=== PATIENT | male | born 1945 | race Caucasian/White ===

== ENCOUNTER 2019-10-26 21:27 | Emergency (ER) | payer MEDICARE, OTHER, SELFPAY ==
[2019-10-26 21:39] VITALS: BP 130/72; PULSE 148; RESP 14; TEMP 35.8; O2SAT 97; BMI 26.6
--- NOTE | 2019-10-26 21:43 | ECG_ITS ---
Measurements Intervals [place] Rate: 153 P: 178 MS: 113 QRS: 12 QRSD: 116 T: -23 QT: 256 QTc: 408 SINUS TACHYCARDIA WITH SHORT MS INTERVAL, POSSIBLE ATRIAL FLUTTER MODERATE INTRAVENTRICULAR CONDUCTION DELAY [110+ ms QRS DURATION] NONSPECIFIC ST & T-WAVE ABNORMALITY ABNORMAL RHYTHM ECG Compared to ECG 03/31/2019 16:14:19 Intraventricular conduction delay now present T-wave abnormality now present Sinus rhythm no longer present Electronically Signed On 10-27-2019 17:03:24 CDT by Héctor Sun M.D. [email or web address]
--- NOTE | 2019-10-26 21:43 | XR_ITS ---
WS: [id number] XR chest 1V portable [id number] REASON FOR EXAM: cp FINDINGS: Chronic obstructive pulmonary disease findings are noted. There is arteriosclerotic changes seen in the arch the aorta. There is mild fibrosis in the lower lung caba. There is no pneumonia pulmonary edema, pleural effusion, no pneumothorax. XR/XR chest 1V portable [id number] IMPRESSION: Chronic obstructive pulmonary disease.
--- NOTE | 2019-10-26 21:46 | W.ED.CHESTPA ---
HPI - Chest Pain General: Chief Complaint: Chest Pain Stated Complaint: irregular heart rate/chest discomfort Time Seen by Provider: 10/26/19 21:42 Source: patient Mode of arrival: ambulatory Limitations: no limitations History of Present Illness: HPI narrative: 74-year-old male with a history of atrial flutter along with SVT. He states he is working out side and started to feel palpitations along with chest pain. He states it feels just like when he gets into A. fib or SVT. He denies any worsening improving factors. He states he can feel his heart rate increased. Onset (ago): hour(s) Timing of current episode: constant Pain location: substernal Pain radiation: none Relieving factors: nothing Exacerbating factors: nothing Associated symptoms: Reports palpitations; Deny abdominal pain, dyspnea, fever(s), nausea or vomiting Review of Systems Const: Denies: fever(s), chills, body aches or change in appetite Eyes: Denies: blurry vision or eye discomfort ENMT: Denies: throat pain or dental pain Card: Reports: palpitations and irregular heart rhythm Resp: Denies: dyspnea GI: Denies: abdominal pain, nausea, vomiting or diarrhea : Denies: dysuria Musc: Denies: neck pain or back pain Skin/Breast: Denies: rash Neuro: Denies: headache(s) Psych: Denies: depression Jaden/Lymph: Denies: easy bruising All/Imm: Denies: urticaria PFSH ED PFSH: Medical History Benign essential HTN BPH (benign prostatic hyperplasia) Chronic prostatitis H/O paroxysmal supraventricular tachycardia Hypercholesterolemia Intermittent atrial fibrillation Pelvis fracture Surgical History H/O ileostomy History of hernia repair S/P tonsillectomy Family History Other Cancer Social History Smoking and tobacco status: never smoked Alcohol intake: never Physical Exam Const: COMMON NORMALS: no acute distress, patient oriented x3 and healthy appearing HENMT: COMMON NORMALS: normocephalic and atraumatic HEAD & SCALP: normocephalic and atraumatic Eye: COMMON NORMALS: Equal, round and reactive pupils present and EOMs intact bilaterally PUPIL: Yes Equal, round and reactive pupils present Neck/C-Spine: COMMON NORMALS: full ROM and supple Chest: COMMONS NORMALS: normal inspection of the chest and normal palpation of entire chest wall Resp: COMMON NORMALS: normal respiratory effort, No retractions, No use of accessory muscles and clear to auscultation bilaterally AUSCULTATION: clear to auscultation bilaterally Cardio: COMMON NORMALS: regular rhythm and No murmurs present (Cardio) RATE: tachycardic RHYTHM: regular rhythm GI: COMMON NORMALS: Normal to inspection, nondistended, normoactive bowel sounds present, Soft to palpation, non-tender and no masses PALPATION: Yes Soft to palpation Extremity: COMMON NORMALS: normal to inspection and full ROM Neuro: COMMON NORMALS: patient oriented x3, moves all extremities and no focal motor deficits Psych: COMMON NORMALS: mental status grossly normal, Normal thought process present and cooperative THOUGHT PROCESS: Normal thought process present Skin: COMMON NORMALS: no rashes or lesions noted and no wounds GENERAL SKIN EXAM: no rashes or lesions noted Course Vital Signs: Vital signs: Vital Signs Temperature 96.4 F L 10/26/19 21:39 Pulse Rate 93 10/26/19 22:04 Respiratory Rate 18 10/26/19 22:04 Blood Pressure 97/70 10/26/19 22:04 Pulse Oximetry 98 10/26/19 22:04 MDM - Chest Pain MDM Narrative: Medical decision making narrative: Patient was seen here with atrial flutter and fib. Patient converted after Cardizem. He is asymptomatic and has no pain. Patient is requesting discharge. I feel patient is stable for discharge at this time. Patient is well-appearing here. Lab Data: Labs: Lab Results 10/26/19 10/26/19 10/26/19 Range/Units 21:51 21:51 21:51 WBC 8.7 (4.0-10.0) 10^3/ uL RBC 5.10 (4.1-5.3) 10^6/u L Hgb 16.2 (11.7-16.6) g/dL Hct 48.7 (42.0-52.0) % MCV 95.5 H (80-94) fL MCH 31.8 (28.0-34.0) pg MCHC 33.3 (30.0-36.0) g/dL RDW 13.2 (12.1-15.1) % Plt Count 246 (130-400) 10^3/c mm MPV 9.0 (7.4-10.4) fL Neut % (Auto) 58.6 % Lymph % (Auto) 29.1 % [place] % (Auto) 9.9 % Eos % (Auto) 1.6 % Baso % (Auto) 0.5 % Neut # (Auto) 5.1 (1.8-7.7) 10^3/u L Lymph # (Auto) 2.5 (0.8-4.8) 10^3/u L [place] # (Auto) 0.9 (0.2-0.9) 10^3/u L Eos # (Auto) 0.1 (0.0-0.8) 10^3/u L Baso # (Auto) 0.0 (0.0-0.1) 10^3/u L Nucleated RBC % (a uto) 0 % Nucleated RBCs # 0.0 /100WBC Sodium 140 (136-145) mmol/L Potassium 3.8 (3.5-5.1) mmol/L Chloride 108 H (98-107) mmol/L Carbon Dioxide 21 L (22-29) mmol/L Anion Gap 14.8 (5-19) BUN 17 (8-23) mg/dL Creatinine 1.2 (0.7-1.2) mg/dL Glucose 141 H (65-115) mg/dL Calculated Osmolal ity 289 (285-295) mOsm/k g Calcium 9.2 (8.5-10.5) mg/dL Total Bilirubin 0.2 (0.15-1.2) mg/dL AST 24 (0-40) U/L ALT 22 (0-41) U/L Alkaline Phosphata se 52 (40-130) IU/L Troponin T Baselin e 13 (0-15) ng/mL Total Protein 6.5 L (6.6-8.7) g/dL Albumin 4.1 (3.5-5.2) g/dL Globulin 2.4 (1.3-4.6) g/dL EKG Data^: EKG 1: Attestation: I personally reviewed and interpreted this EKG as follows: EKG interpretation date: 10/26/19 EKG interpretation time: 21:36 Interpretation: atrial flutter hr [address] or t wave abnormalities qrs 116 qtc 342 EKG 2: Attestation: I personally reviewed and interpreted this EKG as follows: EKG interpretation date: 10/26/19 EKG interpretation time: 22:31 Interpretation: nsr hr [address] or t wave abnormalities qrs 102 qtc 405 Discharge Plan Discharge Patient Disposition: Home, Self-Care Clinical Impression: Intermittent atrial fibrillation Condition: Stable Prescriptions: No Action metoprolol tartrate 25 mg tablet 12.5 mg PO BID RF: 0 Eliquis 5 mg tablet 5 mg PO BID RF: 0 psyllium Packet 1 packet PO DAILY RF: 0 flecainide 150 mg tablet 150 mg PO Q12H RF: 0 fluticasone propionate 50 mcg/actuation spray,suspension 1 spray INTRANASAL BID PRNRF: 0 fexofenadine [Allergy Relief (fexofenadine)] 180 mg tablet 180 mg PO DAILY RF: 0 amlodipine 2.5 mg tablet 2.5 mg PO DAILY 30 Days Qty: 30 RF: 5 dutasteride-tamsulosin [Floresita] 0.5-0.4 mg capsule, ER multiphase 24 hr 1 cap PO DAILY Qty: 90 RF: 3 Discharge Orders: Discharge Order (Routine); Ordered 10/26/19 Ordered By: Casimiro Espinosa Referrals: Gilbert Posada DO [Primary Care Provider] - 1-3 days Discharge Diet: Advance as tolerated Discharge Activity: Resume usual activity Patient Instructions: Atrial Flutter (ED) Coding Level of Care Code ED Tooling Specialist for Chg Fwd Exam Comprehensive
[2019-10-26 21:58] LABS: Basophils % 0.5 %; Eosinophils # 0.1 10^3/uL (0.0-0.8); Eosinophils % 1.6 %; Hematocrit 48.7 % (42.0-52.0); Hemoglobin 16.2 g/dL (11.7-16.6); Lymphocytes # 2.5 10^3/uL (0.8-4.8); Lymphocytes % 29.1 %; Mean Corpuscular HGB Conc 33.3 g/dL (30.0-36.0); Mean Corpuscular Hemoglobin 31.8 pg (28.0-34.0); Mean Corpuscular Volume 95.5 fL (80-94); Monocytes # 0.9 10^3/uL (0.2-0.9); Monocytes % 9.9 %; Neutrophils # 5.1 10^3/uL (1.8-7.7); Neutrophils % 58.6 %; Nucleated Red Blood Cells % 0 %; Platelet Count 246 10^3/cmm (130-400); Red Cell Distribution Width 13.2 % (12.1-15.1); White Blood Count 8.7 10^3/uL (4.0-10.0)
[2019-10-26] MEDS: sodium chloride 0.9% 1,000 ML 999 ML IV (21:58)
[2019-10-26 22:04] VITALS: BP 97/70; PULSE 93; RESP 18; O2SAT 98
[2019-10-26 22:16] LABS: Alanine Aminotransferase 22 U/L (0-41); Albumin Level 4.1 g/dL (3.5-5.2); Alkaline Phosphatase 52 IU/L (40-130); Anion Gap 14.8 (5-19); Aspartate Amino Transferase 24 U/L (0-40); Blood Urea Nitrogen 17 mg/dL (8-23); Calcium 9.2 mg/dL (8.5-10.5); Carbon Dioxide 21 mmol/L (22-29); Chloride 108 mmol/L (98-107); Globulin 2.4 g/dL (1.3-4.6); Glucose 141 mg/dL (65-115); Osmolality Calculated 289 mOsm/kg (285-295); Potassium 3.8 mmol/L (3.5-5.1); Sodium 140 mmol/L (136-145); Total Bilirubin 0.2 mg/dL (0.15-1.2); Total Protein 6.5 g/dL (6.6-8.7)
[2019-10-26 22:19] LABS: Troponin(5th) Baseline 13 ng/mL (0-15)
[2019-10-26 23:05] VITALS: BP 109/77; PULSE 75; RESP 16; O2SAT 96
--- NOTE | 2019-10-26 23:43 | ECG_ITS ---
Measurements Intervals [place] Rate: 75 P: 55 WA: 184 QRS: -10 QRSD: 102 T: -13 QT: 376 QTc: 422 SINUS RHYTHM POSSIBLE LEFT ATRIAL ENLARGEMENT [-0.1mV P WAVE IN V1/V2] MODERATE ST DEPRESSION [0.05+ mV ST DEPRESSION] Compared to ECG 03/31/2019 16:14:19 ST (T wave) deviation now present Electronically Signed On 10-27-2019 17:07:16 CDT by Héctor Sun M.D. [id number]
== END 2019-10-26 23:06 | disposition home or self-care (01) ==
PROVIDERS: Emergency Provider Emergency Medicine; PCP Internal Medicine
DX: I48.91 Unspecified atrial fibrillation (principal); Z79.01 Long term (current) use of anticoagulants; I10 Essential (primary) hypertension
CPT/HCPCS: 12345; 36415; 71045; 80053; 84484; 85025; 93005; 96360; 96361; 96374; 96375; 99283; 99284; J3490; J7030

== ENCOUNTER → 2020-11-22 09:55 | Outpatient (BNVA) | payer MEDICARE, OTHER, SELFPAY | PROVIDERS: PCP Internal Medicine; Visit Provider Urology | DX: N40.1 Benign prostatic hyperplasia with lower urinary tract symptoms (principal); R97.20 Elevated prostate specific antigen [PSA]; N13.8 Other obstructive and reflux uropathy | CPT/HCPCS: 81003; 84153 ==

== ENCOUNTER 2021-01-26 20:20 | Emergency (ER) | payer MEDICARE, OTHER, SELFPAY ==
--- NOTE | 2021-01-26 20:30 | XRR_ITS ---
PROCEDURE INFORMATION: Exam: XR Chest Exam date and time: 01/26/2021 8:30 PM Age: 75 years old Clinical indication: Pain; Left-sided; Additional info: Cp TECHNIQUE: Imaging protocol: XR of the chest. Views: 1 view. Total images: 1 COMPARISON: CR XR chest 1V portable [id number] 10/26/2019 10:04 PM FINDINGS: Lungs: No visible active interstitial or alveolar airspace disease. Chronic minimal bibasilar discoid atelectasis. COPD/chronic bronchitis. Mild senile fibrosis. Pleural spaces: Unremarkable. No pleural effusion. No pneumothorax. Heart/Mediastinum: Cardiac structures and configuration with arteriosclerosis and mild cardiomegaly. Bones/joints: Scoliosis of the spine. XR/XR chest 1V portable [id number] IMPRESSION: Nonacute.
[2021-01-26 20:38] VITALS: BP 118/75; PULSE 160; RESP 20; TEMP 36.8; O2SAT 93; BMI 25.8
--- NOTE | 2021-01-26 20:51 | ED_ITS ---
HPI - Chest Pain General: Chief Complaint: Chest Pain Stated Complaint: chest pressure Time Seen by Provider: 01/26/21 20:44 Source: patient Mode of arrival: ambulatory Limitations: no limitations History of Present Illness: HPI narrative: 75-year-old male states he had a sudden onset of palpitations at 715 this evening. He states he has a history of proximal A. fib and SVT states this feels more like SVT. He states that he feels like his heart is racing. He denies any vomiting or diarrhea. He denies any chest pain states he just has an irregular feeling in his chest from the palpitations. Denies any worsening improving factors. Associated symptoms: Reports palpitations; Deny abdominal pain, dyspnea, fever(s), nausea or vomiting Review of Systems Const: Denies: fever(s), chills, body aches or change in appetite Eyes: Denies: blurry vision or eye discomfort ENMT: Denies: throat pain or dental pain Card: Reports: palpitations Resp: Denies: dyspnea GI: Denies: abdominal pain, nausea, vomiting or diarrhea : Denies: dysuria Musc: Denies: neck pain or back pain Skin/Breast: Denies: rash Neuro: Denies: headache(s) Psych: Denies: depression Jaden/Lymph: Denies: easy bruising All/Imm: Denies: urticaria PFSH ED PFSH: Medical History Benign essential HTN BPH (benign prostatic hyperplasia) BPH with urinary obstruction Long-term benefit of dutasteride. Chronic prostatitis H/O paroxysmal supraventricular tachycardia Hypercholesterolemia Intermittent atrial fibrillation Pelvis fracture Surgical History H/O ileostomy History of hernia repair S/P tonsillectomy Family History Mother Cancer Father Cancer Denies family history of Diabetes CAD (coronary artery disease) Clotting disorder Dementia Chronic kidney disease (CKD) Suicide Anesthesia complication Bleeding disorder Lung disease Stroke Social History Smoking and tobacco status: never smoked Alcohol intake: never Marital status: Current occupational status: retired Physical Exam Const: COMMON NORMALS: no acute distress, patient oriented x3 and healthy appearing HENMT: COMMON NORMALS: normocephalic and atraumatic HEAD & SCALP: normocephalic and atraumatic Eye: COMMON NORMALS: Equal, round and reactive pupils present and EOMs intact bilaterally PUPIL: Yes Equal, round and reactive pupils present Neck/C-Spine: COMMON NORMALS: full ROM and supple Chest: COMMONS NORMALS: normal inspection of the chest and normal palpation of entire chest wall Resp: COMMON NORMALS: normal respiratory effort, No retractions, No use of accessory muscles and clear to auscultation bilaterally AUSCULTATION: clear to auscultation bilaterally Cardio: COMMON NORMALS: regular rate, regular rhythm and No murmurs present (Cardio) RATE: regular rate RHYTHM: regular rhythm GI: COMMON NORMALS: Normal to inspection, nondistended, normoactive bowel sounds present, Soft to palpation, non-tender and no masses PALPATION: Yes Soft to palpation Extremity: COMMON NORMALS: normal to inspection and full ROM Neuro: COMMON NORMALS: patient oriented x3, moves all extremities and no focal motor deficits Psych: COMMON NORMALS: mental status grossly normal, Normal thought process present and cooperative THOUGHT PROCESS: Normal thought process present Skin: COMMON NORMALS: no rashes or lesions noted and no wounds GENERAL SKIN EXAM: no rashes or lesions noted Course Vital Signs: Vital signs: Vital Signs Temperature 98.3 F 01/26/21 20:38 Pulse Rate 99 01/26/21 21:22 Respiratory Rate 20 H 01/26/21 21:22 Blood Pressure 127/91 01/26/21 21:22 Pulse Oximetry 94 01/26/21 21:22 MDM - Chest Pain MDM Narrative: Medical decision making narrative: Patient presents with SVT. Was converted here with adenosine. His symptoms have since resolved and his heart rate has been in the 90s. Feel patient is stable for discharge is to follow-up with PCP and return if worsening. He understands agrees to plan. Lab Data: Labs: Lab Results 01/26/21 01/26/21 01/26/21 Range/Units 20:50 20:50 20:50 WBC Cancelled Corrected WBC Cancelled RBC Cancelled Hgb Cancelled Hct Cancelled MCV Cancelled MCH Cancelled MCHC Cancelled RDW Cancelled Plt Count Cancelled MPV Cancelled Gran % Cancelled Neut % (Auto) Cancelled Lymph % (Auto) Cancelled Robertson % (Auto) Cancelled Eos % (Auto) Cancelled Baso % (Auto) Cancelled Neut # (Auto) Cancelled Lymph # (Auto) Cancelled Robertson # (Auto) Cancelled Eos # (Auto) Cancelled Baso # (Auto) Cancelled Absolute Gran (aut o) Cancelled Nucleated RBC % (a uto) Cancelled Nucleated RBCs # Cancelled PT Cancelled INR Cancelled Sodium Cancelled Potassium Cancelled Chloride Cancelled Carbon Dioxide Cancelled Anion Gap Cancelled BUN Cancelled Creatinine Cancelled GFR Calculation Cancelled Glucose Cancelled Calculated Osmolal ity Cancelled Calcium Cancelled Total Bilirubin Cancelled AST Cancelled ALT Cancelled Alkaline Phosphata se Cancelled Troponin T Baselin e Total Protein Cancelled Albumin Cancelled Globulin Cancelled 01/26/21 Range/Units 20:50 WBC Corrected WBC RBC Hgb Hct MCV MCH MCHC RDW Plt Count MPV Gran % Neut % (Auto) Lymph % (Auto) Robertson % (Auto) Eos % (Auto) Baso % (Auto) Neut # (Auto) Lymph # (Auto) Robertson # (Auto) Eos # (Auto) Baso # (Auto) Absolute Gran (aut o) Nucleated RBC % (a uto) Nucleated RBCs # PT INR Sodium Potassium Chloride Carbon Dioxide Anion Gap BUN Creatinine GFR Calculation Glucose Calculated Osmolal ity Calcium Total Bilirubin AST ALT Alkaline Phosphata se Troponin T Baselin e Cancelled Total Protein Albumin Globulin Imaging Data^: CXR: Attestation: I personally reviewed and interpreted this imaging study as follows: My impression: no acute abnormality EKG Data^: EKG 1: Attestation: I personally reviewed and interpreted this EKG as follows: EKG interpretation date: 01/26/21 EKG interpretation time: 20:34 Interpretation: svt hr [address] or t wave abnormalities qrs 123 qtc 326 EKG 2: Attestation: I personally reviewed and interpreted this EKG as follows: EKG interpretation date: 01/26/21 EKG interpretation time: 21:23 Interpretation: nsr hr [address] or twave abnormalities qrs 106 qtc 398 Discharge Plan Discharge Patient Disposition: Home Clinical Impression: SVT (supraventricular tachycardia) Condition: Stable Prescriptions: No Action Ocuvite Adult 50 Plus 250-5-1 mg capsule 1 cap PO DAILY RF: 0 Eliquis 5 mg tablet 5 mg PO BID RF: 0 psyllium Packet 1 packet PO DAILY RF: 0 flecainide 150 mg tablet 150 mg PO Q12H RF: 0 fluticasone propionate 50 mcg/actuation spray,suspension 1 spray INTRANASAL BID PRN (Reason: Allergy Symptoms) RF: 0 fexofenadine [Allergy Relief (fexofenadine)] 180 mg tablet 180 mg PO DAILY RF: 0 diltiazem HCl 120 mg capsule,extended release 24hr 120 mg PO DAILY Qty: 90 RF: 3 acetaminophen 325 mg Tablet 325 - 650 mg PO DAILY PRN (Reason: Pain) RF: 0 dutasteride-tamsulosin 0.5-0.4 mg capsule, ER multiphase 24 hr 1 cap PO DAILY RF: 0 Discharge Orders: Discharge ED (Routine); Ordered 01/26/21 Ordered By: Casimiro Espinosa Referrals: Gilbert Posada DO [Primary Care Provider] - Discharge Diet: Advance as tolerated Discharge Activity: Resume usual activity Patient Instructions: Supraventricular Tachycardia (ED) Coding Level of Care Code ED Paper Tester for Chg Fwd Exam Comprehensive
[2021-01-26 20:54] VITALS: BP 120/85; PULSE 155; RESP 29; O2SAT 95
[2021-01-26] MEDS: adenosine 3 mg/mL SDV 2mL 6 MG IVP (20:55)
[2021-01-26 21:22] VITALS: BP 127/91; PULSE 99; RESP 20; O2SAT 94
[2021-01-26 21:28] VITALS: BP 110/80; PULSE 98; RESP 21; O2SAT 95
--- NOTE | 2021-01-27 07:16 | ECG_ITS ---
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 Measurements Intervals [place] Rate: 163 P: MA: QRS: 24 QRSD: 123 T: 17 QT: 236 QTc: 389 Interpretive Statements Possible atrial flutter with rapid response POSSIBLE RIGHT VENTRICULAR CONDUCTION DELAY [RSR (QR) IN V1/V2] NONSPECIFIC ST & T-WAVE ABNORMALITY Compared to ECG 10/26/2019 22:31:34 T-wave abnormality now present Sinus rhythm no longer present ST (T wave) deviation no longer present Electronically Signed On 01-28-2021 9:11:20 CDT by Sylvie Daniel M.D. [id number]
== END 2021-01-26 21:36 | disposition home or self-care (01) ==
PROVIDERS: Emergency Provider Emergency Medicine; PCP Internal Medicine
DX: I47.1 Supraventricular tachycardia (principal); Z79.01 Long term (current) use of anticoagulants; I10 Essential (primary) hypertension
CPT/HCPCS: 71045; 85025; 93005; 96374; 99284; J0153

== ENCOUNTER → 2021-08-09 14:06 | Outpatient (BNVA) | payer MEDICARE, OTHER, SELFPAY | PROVIDERS: PCP Internal Medicine; Visit Provider Internal Medicine Cardiovascular Disease | DX: I48.0 Paroxysmal atrial fibrillation (principal); E78.00 Pure hypercholesterolemia, unspecified; I10 Essential (primary) hypertension; Z86.79 Personal history of other diseases of the circulatory system | CPT/HCPCS: 99214 ==

== ENCOUNTER → 2022-02-14 13:49 | Outpatient (BNVA) | payer MEDICARE, OTHER, SELFPAY | PROVIDERS: PCP Internal Medicine; Visit Provider Internal Medicine Cardiovascular Disease | DX: I48.91 Unspecified atrial fibrillation (principal); Z79.01 Long term (current) use of anticoagulants; I10 Essential (primary) hypertension; Z86.79 Personal history of other diseases of the circulatory system; E78.00 Pure hypercholesterolemia, unspecified | CPT/HCPCS: 99214 ==

== ENCOUNTER → 2022-08-16 14:05 | Outpatient (BNVA) | payer MEDICARE, OTHER, SELFPAY | PROVIDERS: PCP Internal Medicine; Visit Provider Internal Medicine Cardiovascular Disease | DX: I48.91 Unspecified atrial fibrillation (principal); I10 Essential (primary) hypertension; E78.00 Pure hypercholesterolemia, unspecified; Z86.79 Personal history of other diseases of the circulatory system; Z79.01 Long term (current) use of anticoagulants | CPT/HCPCS: 99214 ==

== ENCOUNTER → 2023-02-28 14:35 | Outpatient (BNVA) | payer MEDICARE, OTHER, SELFPAY | PROVIDERS: PCP Internal Medicine; Visit Provider Internal Medicine Cardiovascular Disease | DX: R07.9 Chest pain, unspecified (principal); I48.0 Paroxysmal atrial fibrillation; E78.00 Pure hypercholesterolemia, unspecified; I10 Essential (primary) hypertension; Z86.79 Personal history of other diseases of the circulatory system; Z79.899 Other long term (current) drug therapy; I45.9 Conduction disorder, unspecified | CPT/HCPCS: 93005; 99214 ==

== ENCOUNTER → 2023-03-08 14:21 | Outpatient (BNVA) | payer MEDICARE, OTHER, SELFPAY | PROVIDERS: PCP Internal Medicine; Visit Provider Nurse Practitioner Family | DX: I87.2 Venous insufficiency (chronic) (peripheral) (principal); D22.5 Melanocytic nevi of trunk; L57.8 Other skin changes due to chronic exposure to nonionizing radiation; L81.4 Other melanin hyperpigmentation; Z08 Encounter for follow-up examination after completed treatment for malignant neoplasm; Z85.828 Personal history of other malignant neoplasm of skin; D48.5 Neoplasm of uncertain behavior of skin; L57.0 Actinic keratosis | CPT/HCPCS: 11102; 17000; 99213 ==

== ENCOUNTER → 2023-03-21 10:22 | Outpatient (BNVA) | payer MEDICARE, OTHER, SELFPAY | PROVIDERS: PCP Internal Medicine; Visit Provider Dermatology | DX: D03.4 Melanoma in situ of scalp and neck (principal) | CPT/HCPCS: 11623; 12032 ==

== ENCOUNTER → 2023-04-04 11:39 | Outpatient (BNVA) | payer MEDICARE, OTHER, SELFPAY | PROVIDERS: PCP Internal Medicine; Visit Provider Dermatology | DX: Z48.02 Encounter for removal of sutures (principal) | CPT/HCPCS: 99024 ==

== ENCOUNTER → 2023-08-06 13:37 | Outpatient (BNVA) | payer MEDICARE, OTHER, SELFPAY | PROVIDERS: PCP Internal Medicine; Visit Provider Nurse Practitioner Family | DX: L57.0 Actinic keratosis (principal); L91.8 Other hypertrophic disorders of the skin; L57.8 Other skin changes due to chronic exposure to nonionizing radiation; L81.4 Other melanin hyperpigmentation; D22.39 Melanocytic nevi of other parts of face; D22.5 Melanocytic nevi of trunk; L82.1 Other seborrheic keratosis | CPT/HCPCS: 11200; 17000; 99213 ==

== ENCOUNTER → 2023-09-19 10:03 | Outpatient (BNVA) | payer MEDICARE, OTHER, SELFPAY | PROVIDERS: PCP Internal Medicine; Visit Provider Internal Medicine Cardiovascular Disease | DX: I48.0 Paroxysmal atrial fibrillation (principal); Z79.899 Other long term (current) drug therapy; E78.00 Pure hypercholesterolemia, unspecified; I10 Essential (primary) hypertension; I47.10 Supraventricular tachycardia, unspecified; Z79.01 Long term (current) use of anticoagulants | CPT/HCPCS: 99214 ==

== ENCOUNTER → 2023-09-27 14:30 | Outpatient (BNVA) | payer MEDICARE, OTHER, SELFPAY | PROVIDERS: PCP Internal Medicine; Visit Provider Nurse Practitioner Family | DX: D48.5 Neoplasm of uncertain behavior of skin (principal); L23.9 Allergic contact dermatitis, unspecified cause; L57.8 Other skin changes due to chronic exposure to nonionizing radiation; L81.4 Other melanin hyperpigmentation; D22.39 Melanocytic nevi of other parts of face; L82.1 Other seborrheic keratosis; I87.2 Venous insufficiency (chronic) (peripheral); Z86.006 Personal history of melanoma in-situ; Z85.828 Personal history of other malignant neoplasm of skin | CPT/HCPCS: 11102; 99214 ==

== ENCOUNTER → 2024-02-06 14:35 | Outpatient (BNVA) | payer MEDICARE, OTHER, SELFPAY | PROVIDERS: PCP Internal Medicine; Visit Provider Nurse Practitioner Family | DX: Z86.006 Personal history of melanoma in-situ (principal); Z85.828 Personal history of other malignant neoplasm of skin; D48.5 Neoplasm of uncertain behavior of skin | CPT/HCPCS: 11102; 99213 ==

== ENCOUNTER → 2024-03-05 14:48 | Outpatient (BNVA) | payer MEDICARE, OTHER, SELFPAY | PROVIDERS: PCP Internal Medicine; Visit Provider Dermatology | DX: C44.629 Squamous cell carcinoma of skin of left upper limb, including shoulder (principal) | CPT/HCPCS: 11602; 13121 ==

== ENCOUNTER → 2024-03-20 15:08 | Outpatient (BNVA) | payer MEDICARE, OTHER, SELFPAY | PROVIDERS: PCP Internal Medicine; Visit Provider Dermatology | DX: I78.8 Other diseases of capillaries (principal); L82.1 Other seborrheic keratosis; L57.8 Other skin changes due to chronic exposure to nonionizing radiation | CPT/HCPCS: 99213 ==

== ENCOUNTER → 2024-03-28 10:00 | Outpatient (BNVA) | payer MEDICARE, OTHER, SELFPAY | PROVIDERS: PCP Internal Medicine; Visit Provider Nurse Practitioner Family | DX: I21.9 Acute myocardial infarction, unspecified (principal); I49.8 Other specified cardiac arrhythmias; R07.9 Chest pain, unspecified; R94.31 Abnormal electrocardiogram [ECG] [EKG]; I47.10 Supraventricular tachycardia, unspecified; I48.0 Paroxysmal atrial fibrillation; R53.83 Other fatigue | CPT/HCPCS: 93005; 99214 ==

== ENCOUNTER → 2024-07-02 15:00 | Outpatient (BNVA) | payer MEDICARE, OTHER, SELFPAY | PROVIDERS: PCP Internal Medicine; Visit Provider Nurse Practitioner Family | DX: L82.1 Other seborrheic keratosis (principal); D22.39 Melanocytic nevi of other parts of face; I78.8 Other diseases of capillaries; L57.8 Other skin changes due to chronic exposure to nonionizing radiation; L81.4 Other melanin hyperpigmentation; L30.0 Nummular dermatitis; Z86.006 Personal history of melanoma in-situ; Z08 Encounter for follow-up examination after completed treatment for malignant neoplasm; Z85.828 Personal history of other malignant neoplasm of skin; L57.0 Actinic keratosis | CPT/HCPCS: 17000; 99214 ==

== ENCOUNTER → 2024-09-02 15:33 | Outpatient (BNVA) | payer MEDICARE, OTHER, SELFPAY | PROVIDERS: PCP Internal Medicine; Visit Provider Internal Medicine Cardiovascular Disease | DX: I48.0 Paroxysmal atrial fibrillation (principal); Z79.01 Long term (current) use of anticoagulants; I10 Essential (primary) hypertension; E78.00 Pure hypercholesterolemia, unspecified; I47.10 Supraventricular tachycardia, unspecified; R53.83 Other fatigue; Z98.61 Coronary angioplasty status; Z79.899 Other long term (current) drug therapy | CPT/HCPCS: 99214 ==

== ENCOUNTER 2024-09-08 07:23 | Outpatient (CLI) | payer MEDICARE, OTHER, SELFPAY ==
--- NOTE | 2024-09-08 | ECG_ITS ---
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 The perfusion scan will be documented separately. DATA: Baseline heart rate was 69 beats per minute. Baseline blood pressure was 159/76 millimeters of mercury. Target heart rate was 142. Maximum heart rate achieved was 88. which was 61 % of the predicted target heart rate. Maximum blood pressure was 159/85 millimeters of mercury. The reason for ending the test was end of protocol the patient did not experience any symptoms. ELECTROCARDIOGRAM: BASELINE: Sinus rhythm. Normal axis. Inferolateral ST depression with interventricular conduction delay could be nonspecific EXERCISE: After Lexiscan injection, no ST-T changes suggestive of ischemic noted. No arrhythmia noted. CONCLUSION: Please note due to baseline abnormality of the EKG specificity and sensitivity of the EKG portion of LexiScan MIBI stress test will be low 1. EKG not suggestive of ischemia 2. Lexiscan injection unremarkable. 3. Perfusion scan will be documented separately. Electronically Signed On 09-08-2024 19:29:49 CDT by KATERINE RICHARDS [id number] [id number]
[2024-09-08 07:51] VITALS: BMI 27.0
--- NOTE | 2024-09-08 07:51 | NMCV_ITS ---
NM odette perf SPECT r/s* [id number] Fadi Jordan Age: 79 Gender: M : 1945 Exam Date: 09/08/2024 08:38 Ordering Phys: Bar De La Cruz MD ([email or web address]) Technologist: GERALDO Carreno Exam Location: [facility] Indications: cp STRESS TEST Please see separate stress test report in [facility] for full findings IMAGE PROTOCOL Rest/Stress 1 Lexiscan Day Radiopharmaceutical Dose (mCi) Administration Site Administered by Rest: Tc-99m 10.9 IV GERALDO Carreno Sestamibi Stress:Tc-99m 328 IV GERALDO Peace Sestamibi Rest: 08-Sep-2024 60 Discovery 630 Stress: 08-Sep-2024 30 Discovery 630 0.4mg Lexiscan. Images obtained in supine and prone position. SPECT RESULTS Technical Quality: Good Raw Data Analysis: Normal Image Corrections: No attenuation or motion correction applied Summed Stress Score: 3 Summed Rest Score: 0 Summed Difference Score: 3 PERFUSION FINDINGS There is a small area of partially reversible perfusion defect in the inferior wall. 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 FUNCTIONAL RESULTS (calculated via Gated SPECT) Stress Image LV EF (%): 77 Stress EDV (mL):87 TID: 0.95 Stress ESV (mL):20 FUNCTIONAL FINDINGS: There is normal left ventricular systolic function. IMPRESSIONS 1. 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 2. LV systolic function is normal. Qamar Vivas MD (Electronically Signed) Final Date: 08 September 2024 17:11 S
[2024-09-08] MEDS: regadenoson 0.4 Mg/5 ml Syringe IVP (09:05)
[2024-09-08 09:11] VITALS: BP 139/81; PULSE 75
== END 2024-09-08 07:24 | disposition home or self-care (01) ==
PROVIDERS: PCP Family Medicine; Visit Provider Internal Medicine Cardiovascular Disease
DX: I48.91 Unspecified atrial fibrillation (principal); R93.1 Abnormal findings on diagnostic imaging of heart and coronary circulation
CPT/HCPCS: 36415; 78452; 93017; 96374; A9500; J2785

== ENCOUNTER 2024-09-18 20:56 | Emergency (ER) | payer MEDICARE, OTHER, SELFPAY ==
[2024-09-18 21:03] VITALS: BP 154/94; PULSE 142; RESP 18; TEMP 37.1; O2SAT 94; BMI 26.9
--- NOTE | 2024-09-18 21:04 | XRR_ITS ---
PROCEDURE INFORMATION: Exam: XR Chest Exam date and time: 09/18/2024 9:15 PM Age: 79 years old Clinical indication: Chest pressure and chest wall pain; Additional info: Palpitations TECHNIQUE: Imaging protocol: Radiologic exam of the chest. Views: 1 view. COMPARISON: CR XR chest 2V* [id number] 11/21/2021 11:06 AM FINDINGS: Lungs: Unremarkable. No consolidation. Pleural spaces: Unremarkable. No pleural effusion. No pneumothorax. Heart/Mediastinum: Unremarkable. No cardiomegaly. Bones/joints: Unremarkable. XR/XR chest 1V portable [id number] IMPRESSION: No acute findings.
--- NOTE | 2024-09-18 21:08 | ECG_ITS ---
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 Measurements Intervals [place] Rate: 142 P: 171 CO: 141 QRS: 34 QRSD: 122 T: -31 QT: 266 QTc: 409 Interpretive Statements POSSIBLE ATRIAL FLUTTER MODERATE INTRAVENTRICULAR CONDUCTION DELAY [110+ ms QRS DURATION] NONSPECIFIC ST & T-WAVE ABNORMALITY Compared to ECG 03/28/2024 10:07:19 Intraventricular conduction delay now present T-wave abnormality now present Sinus rhythm no longer present Myocardial infarct finding no longer present Electronically Signed On 09-19-2024 10:35:24 CDT by Bar De La Cruz M.D. [email or web address] [id number]
--- NOTE | 2024-09-18 21:09 | W.ED.ARRPALP ---
Documented by User: Pat Null MD 09/18/24 21:10 HPI - Arrhythmia/Palpitations General: Chief Complaint: Arrhythmia/Palpitations Stated Complaint: Has Svt,A fib can't get his heart rate down Time Seen by Provider: 09/18/24 21:09 History of Present Illness: 79-year-old male with a history of hypertension, atrial fibrillation, SVT and chronic anticoagulation on Eliquis who presents emergency room with tachycardia. He says usually when he has SVT he can lay on his back and get it to convert. He said when that did not work he figured it was A-fib. When he arrives here he appears to be in atrial fibrillation. Rate in the 140s. No chest pain. No shortness of breath. No altered mental status. No lower extremity swelling. No fevers. No cough. Related Data Home Medications ?Medication ?Instructions ?Recorded ?Confirmed apixaban 5 mg tablet (Eliquis) 5 mg PO BID 07/07/19 03/28/24 flecainide 150 mg tablet 150 mg PO Q12H 07/07/19 03/28/24 fluticasone propionate 50 1 spray intranasal BID PRN Allergy 07/07/19 03/28/24 mcg/actuation nasal Symptoms spray,suspension psyllium 1 packet PO DAILY 07/07/19 03/28/24 vit C,E,zinc,copper-[id number] 250 1 cap PO DAILY 11/22/20 03/28/24 mg-lutein 5 mg-zeaxanthin 1 mg capsule (Ocuvite Adult 50 Plus) dutasteride 0.5 mg-tamsulosin ER 1 cap PO DAILY 01/26/21 03/28/24 0.4 mg capsule ext.release 24hr mphas fluocinonide 0.05 % topical 1 applic topical BID 06/22/21 03/28/24 ointment fexofenadine 180 mg tablet 180 mg PO .PRN 08/09/21 03/28/24 (Allergy Relief (fexofenadine)) acetaminophen 325 mg tablet 325 - 650 mg PO DAILY PRN Pain 08/16/22 03/28/24 atorvastatin 20 mg tablet mg PO 09/02/24 Previous Rx's ?Medication ?Instructions ?Recorded diltiazem HCl 180 mg See Rx Instructions .Route 08/15/24 capsule,extended release 24 hr .COMPLEX #90 caps Allergies Allergy/AdvReac Type Severity Reaction Status Date / Time No Known Allergies Allergy Verified 09/02/24 08:13 Review of Systems Narrative: Constitutional symptoms: Negative except as documented in HPI. Skin symptoms: Negative except as documented in HPI. Eye symptoms: Negative except as documented in HPI. ENMT symptoms: Negative except as documented in HPI. Respiratory symptoms: Negative except as documented in HPI. Cardiovascular symptoms: Negative except as documented in HPI. Gastrointestinal symptoms: Negative except as documented in HPI. Genitourinary symptoms: Negative except as documented in HPI. Musculoskeletal symptoms: Negative except as documented in HPI. Neurologic symptoms: Negative except as documented in HPI. Psychiatric symptoms: Negative except as documented in HPI. Endocrine symptoms: Negative except as documented in HPI. PFSH ED PFSH: Medical History BPH with urinary obstruction Long-term benefit of dutasteride. Hypercholesterolemia Benign essential HTN Intermittent atrial fibrillation Pelvis fracture H/O paroxysmal supraventricular tachycardia BPH (benign prostatic hyperplasia) Chronic prostatitis Surgical History History of colon resection Hx of pelvic surgery History of hernia repair S/P tonsillectomy H/O ileostomy Family History Mother Cancer Father Cancer Denies family history of Diabetes CAD (coronary artery disease) Clotting disorder Dementia Chronic kidney disease (CKD) Suicide Anesthesia complication Bleeding disorder Lung disease Stroke Social History Smoking and tobacco/nicotine status: never used tobacco/nicotine Alcohol intake: never Substance/Drug Use: never Marital status: Current occupational status: retired Physical Exam Narrative: EXAM NARRATIVE: General: Alert, no acute distress. Skin: Warm, dry. Head: Normocephalic, atraumatic. Neck: Supple, trachea midline. Eye: Extraocular movements are intact. Ears, nose, mouth and throat: mucosa moist. Cardiovascular: Irregular, tachycardic, Normal peripheral perfusion. Respiratory: Lungs are clear to auscultation, respirations are non-labored, breath sounds are equal, Symmetrical chest wall expansion. Gastrointestinal: Soft, Nontender, Non distended Musculoskeletal: Normal ROM, no deformity. Neurological: Alert and oriented, No focal neurological deficit observed. Psychiatric: Cooperative, appropriate mood & affect. Course Vital Signs: Vital signs: Vital Signs Temperature 98.7 F 09/18/24 21:03 Pulse Rate 81 09/18/24 22:28 Respiratory Rate 16 09/18/24 22:28 Blood Pressure 118/78 09/18/24 22:28 Pulse Oximetry 91 09/18/24 22:28 Oxygen Delivery Me thod Room Air 09/18/24 22:28 MDM - Arrhythmia/Palpitations Medical Decision Making Patient care transitioned to Dr. De La Vega at shift change. Lab Data 09/18/24 21:23 09/18/24 22:22 Radiology Impressions Chest X-Ray 09/18/24 21:04 IMPRESSION: No acute findings. Laboratory Results WBC 6.98 10^3/uL (3.29-11.43) 09/18/24 21:23 RBC 5.19 10^6/uL (3.85-5.65) 09/18/24 21:23 Hgb 16.00 g/dL (11.27-16.99) 09/18/24 21:23 Hct 48.4 % (37-53) 09/18/24 21:23 MCV 93.3 fl (82-101) 09/18/24 21:23 MCH 30.8 pg (27-33) 09/18/24 21:23 MCHC 33.1 g/dL (30-55) 09/18/24 21:23 RDW 13.3 % (12.1-15.1) 09/18/24 21:23 Plt Count 237 10^3/cmm (157-399) 09/18/24 21:23 MPV 9.1 fL (7.4-10.4) 09/18/24 21:23 Neut % (Auto) 56.2 % 09/18/24 21: Lymph % (Auto) 31.7 % 09/18/24 21:23 [place] % (Auto) 9.5 % 09/18/24 21:23 Eos % (Auto) 2.0 % 09/18/24 21:23 Baso % (Auto) 0.3 % 09/18/24 21:23 Neut # (Auto) 3.93 10^3/uL (1.8-7.7) 09/18/24 21:23 Lymph # (Auto) 2.2 10^3/uL (0.8-4.8) 09/18/24 21:23 [place] # (Auto) 0.7 10^3/uL (0.2-0.9) 09/18/24 21:23 Eos # (Auto) 0.1 10^3/uL (0.0-0.8) 09/18/24 21:23 Baso # (Auto) 0.0 10^3/uL (0.0-0.1) 09/18/24 21:23 Nucleated RBC % (auto) 0 % 09/18/24 21: Nucleated RBCs # 0.0 /100WBC 09/18/24 21:23 Sodium 141 mmol/L (136-145) 09/18/24 22:22 Potassium 4.3 mmol/L (3.5-5.1) 09/18/24 22:22 Chloride 107 mmol/L (98-107) 09/18/24 22:22 Carbon Dioxide 25 mmol/L (22-29) 09/18/24 22:22 Anion Gap 13.3 (5-19) 09/18/24 22:22 BUN 20 mg/dL (8-23) 09/18/24 22:22 Creatinine 0.8 mg/dL (0.7-1.2) 09/18/24 22:22 GFR Calculation Not Reportable 09/18/24 22:22 Glucose 105 mg/dL (65-115) 09/18/24 22:22 Calculated Osmolality 295 mOsm/kg (285-295) 09/18/24 22:22 Calcium 9.3 mg/dL (8.5-10.5) 09/18/24 22:22 Magnesium 2.0 mg/dL (1.7-2.3) 09/18/24 22:22 Total Bilirubin 0.2 mg/dL (0.15-1.2) 09/18/24 22:22 AST 19 U/L (0-40) 09/18/24 22:22 ALT 19 U/L (0-41) 09/18/24 22:22 Alkaline Phosphatase 66 U/L (40-130) 09/18/24 22:22 Troponin T Baseline 13 ng/L (0-15) 09/18/24 22:22 NT-Pro-B Natriuret Pep 130 pg/mL (0-450) 09/18/24 22:22 Total Protein 6.7 g/dL (6.6-8.7) 09/18/24 22: Albumin 4.2 g/dL (3.5-5.2) 09/18/24 22: Globulin 2.5 g/dL (1.3-4.6) 09/18/24 22: TSH 3.17 uIU/mL (0.27-4.20) 09/18/24 22:22 Urine Color Yellow (Yellow) 09/18/24 21:32 Urine Appearance Clear (CLEAR) 09/18/24 21: Urine pH 7.0 (5-7) 09/18/24 21: Ur Specific [place] 1.005 (1.005-1.030) 09/18/24 21: Urine Protein Negative (Negative) 09/18/24 21: Urine Glucose (UA) Negative (Normal) 09/18/24 21: Urine Ketones Negative (Negative) 09/18/24 21:32 Urine Blood Trace (Negative) A 09/18/24 21:32 Urine Nitrate Negative (Negative) 09/18/24 21: Urine Bilirubin Negative (Negative) 09/18/24 21: Urine Urobilinogen 0.2 mg/dL (Negative) 09/18/24 21:32 Ur Leukocyte Esterase Negative (Negative) 09/18/24 21:32 Urine RBC 0-2 /hpf (0-2) 09/18/24 21:32 Urine WBC 0-5 /hpf (0-5) 09/18/24 21:32 Ur Squamous Epith Cells 0-5 /hpf (0-5) 09/18/24 21:32 Amorphous Sediment Not Reportable 09/18/24 21:32 Urine Bacteria None seen /hpf (NONE) 09/18/24 21: Hyaline Casts 0-4 /lpf H 09/18/24 21:32 Influenza A (PCR) Negative (Negative) 09/18/24 22: Influenza Type B (PCR) Negative (Negative) 09/18/24 22:27 RSV (PCR) Negative (Negative) 09/18/24 22: SARS-CoV-2 (PCR) Negative (Negative) 09/18/24 22:27 Discharge Plan Discharge Patient Disposition: Home Clinical Impression: Supraventricular tachycardia, Atrial fibrillation Condition: Stable Prescriptions: No Action fexofenadine [Allergy Relief (fexofenadine)] 180 mg tablet 180 mg PO .PRN Ocuvite Adult 50 Plus 250-5-1 mg capsule 1 cap PO DAILY Eliquis 5 mg tablet 5 mg PO BID psyllium Packet 1 packet PO DAILY flecainide 150 mg tablet 150 mg PO Q12H fluticasone propionate 50 mcg/actuation spray,suspension 1 spray INTRANASAL BID PRN (Reason: Allergy Symptoms) fluocinonide 0.05 % ointment 1 applic topical BID atorvastatin 20 mg tablet PO diltiazem HCl 180 mg capsule,extended release 24hr See Rx Instructions .ROUTE .COMPLEX Qty: 90 3RF Dose Instruction: TAKE 1 CAPSULE BY MOUTH EVERY DAY Rx Instructions: TAKE 1 CAPSULE BY MOUTH EVERY DAY dutasteride-tamsulosin 0.5-0.4 mg capsule, ER multiphase 24 hr 1 cap PO DAILY acetaminophen 325 mg tablet 325 - 650 mg PO DAILY PRN (Reason: Pain) Discharge Orders: Discharge ED (Routine); Ordered 09/18/24 Ordered By: Ash De La Vega Referrals: John Kowalski MD [Primary Care Provider] - Discharge Diet: Usual diet Discharge Activity: Resume usual activity Patient Instructions: A-fib (Atrial Fibrillation) (ED), Opioid Safety, Pain Management Activity Restrictions/Additional Instructions: Continue home medications as previously directed. Follow-up with your neurology epilepsy physician for recheck next week. Return for any new or worsening symptoms or any other concerns. Print Language: Sinhala Coding Level of Care Code ED Rotary Dryer Operator for Chg Fwd Documented by User: Ash De La Vega MD 09/18/24 23:37 HPI - Arrhythmia/Palpitations General: Chief Complaint: Arrhythmia/Palpitations Stated Complaint: Has Svt,A fib can't get his heart rate down Time Seen by Provider: 09/18/24 21:09 Related Data Home Medications ?Medication ?Instructions ?Recorded ?Confirmed apixaban 5 mg tablet (Eliquis) 5 mg PO BID 07/07/19 03/28/24 flecainide 150 mg tablet 150 mg PO Q12H 07/07/19 03/28/24 fluticasone propionate 50 1 spray intranasal BID PRN Allergy 07/07/19 03/28/24 mcg/actuation nasal Symptoms spray,suspension psyllium 1 packet PO DAILY 07/07/19 03/28/24 vit C,E,zinc,copper-[id number] 250 1 cap PO DAILY 11/22/20 03/28/24 mg-lutein 5 mg-zeaxanthin 1 mg capsule (Ocuvite Adult 50 Plus) dutasteride 0.5 mg-tamsulosin ER 1 cap PO DAILY 01/26/21 03/28/24 0.4 mg capsule ext.release 24hr mphas fluocinonide 0.05 % topical 1 applic topical BID 06/22/21 03/28/24 ointment fexofenadine 180 mg tablet 180 mg PO .PRN 08/09/21 03/28/24 (Allergy Relief (fexofenadine)) acetaminophen 325 mg tablet 325 - 650 mg PO DAILY PRN Pain 08/16/22 03/28/24 atorvastatin 20 mg tablet mg PO 09/02/24 Previous Rx's ?Medication ?Instructions ?Recorded diltiazem HCl 180 mg See Rx Instructions .Route 08/15/24 capsule,extended release 24 hr .COMPLEX #90 caps Allergies Allergy/AdvReac Type Severity Reaction Status Date / Time No Known Allergies Allergy Verified 09/02/24 08:13 [facility] ED PFSH: Medical History BPH with urinary obstruction Long-term benefit of dutasteride. Hypercholesterolemia Benign essential HTN Intermittent atrial fibrillation Pelvis fracture H/O paroxysmal supraventricular tachycardia BPH (benign prostatic hyperplasia) Chronic prostatitis Surgical History History of colon resection Hx of pelvic surgery History of hernia repair S/P tonsillectomy H/O ileostomy Family History Mother Cancer Father Cancer Denies family history of Diabetes CAD (coronary artery disease) Clotting disorder Dementia Chronic kidney disease (CKD) Suicide Anesthesia complication Bleeding disorder Lung disease Stroke Social History Smoking and tobacco/nicotine status: never used tobacco/nicotine Alcohol intake: never Substance/Drug Use: never Marital status: Current occupational status: retired Course Vital Signs: Vital signs: Vital Signs Temperature 98.7 F 09/18/24 21:03 Pulse Rate 81 09/18/24 22:28 Respiratory Rate 16 09/18/24 22:28 Blood Pressure 118/78 09/18/24 22:28 Pulse Oximetry 91 09/18/24 22:28 Oxygen Delivery Me thod Room Air 09/18/24 22:28 MDM - Arrhythmia/Palpitations Medical Decision Making Patient care transitioned to Dr. De La Vega at shift change. Patient was turned over to me pending labs and reevaluation. Patient has a known history of SVT and atrial fibrillation. He presented with presumed to be A-fib with RVR. He was converted to sinus rhythm with previous medications administered prior to my exam. On reassessment he states he feels 100% better. His heart rate has been sinus rhythm around 70 bpm the remainder of his stay here. His vital signs of been normal otherwise as well. Basic labs were obtained and are unremarkable. He is eager for discharge home. He states he feels much better and this is a frequent occurrence for him. Patient will follow-up with his neurology epilepsy physician as an outpatient. Differential Diagnosis Likely palpitations Lab Data I reviewed the patient's lab results. 09/18/24 21:23 09/18/24 22:22 Radiology Impressions Chest X-Ray 09/18/24 21:04 IMPRESSION: No acute findings. Laboratory Results WBC 6.98 10^3/uL (3.29-11.43) 09/18/24 21:23 RBC 5.19 10^6/uL (3.85-5.65) 09/18/24 21:23 Hgb 16.00 g/dL (11.27-16.99) 09/18/24 21:23 Hct 48.4 % (37-53) 09/18/24 21:23 MCV 93.3 fl (82-101) 09/18/24 21: MCH 30.8 pg (27-33) 09/18/24 21: MCHC 33.1 g/dL (30-55) 09/18/24 21: RDW 13.3 % (12.1-15.1) 09/18/24 21: Plt Count 237 10^3/cmm (157-399) 09/18/24 21: MPV 9.1 fL (7.4-10.4) 09/18/24 21: Neut % (Auto) 56.2 % 09/18/24: Lymph % (Auto) 31.7 % 09/18/24 21: [place] % (Auto) 9.5 % 09/18/24 21: Eos % (Auto) 2.0 % 09/18/24: Baso % (Auto) 0.3 % 09/18/24: Neut # (Auto) 3.93 10^3/uL (1.8-7.7) 09/18/24: Lymph # (Auto) 2.2 10^3/uL (0.8-4.8) 09/18/24: [place] # (Auto) 0.7 10^3/uL (0.2-0.9) 09/18/24 21: Eos # (Auto) 0.1 10^3/uL (0.0-0.8) 09/18/24 21: Baso # (Auto) 0.0 10^3/uL (0.0-0.1) 09/18/24: Nucleated RBC % (auto) 0 % 09/18/24 21: Nucleated RBCs # 0.0 /100WBC 09/18/24 21:23 Sodium 141 mmol/L (136-145) 09/18/24 22:22 Potassium 4.3 mmol/L (3.5-5.1) 09/18/24 22:22 Chloride 107 mmol/L (98-107) 09/18/24 22:22 Carbon Dioxide 25 mmol/L (22-29) 09/18/24 22:22 Anion Gap 13.3 (5-19) 09/18/24 22:22 BUN 20 mg/dL (8-23) 09/18/24 22:22 Creatinine 0.8 mg/dL (0.7-1.2) 09/18/24 22:22 GFR Calculation Not Reportable 09/18/24 22:22 Glucose 105 mg/dL (65-115) 09/18/24 22:22 Calculated Osmolality 295 mOsm/kg (285-295) 09/18/24 22:22 Calcium 9.3 mg/dL (8.5-10.5) 09/18/24 22:22 Magnesium 2.0 mg/dL (1.7-2.3) 09/18/24 22:22 Total Bilirubin 0.2 mg/dL (0.15-1.2) 09/18/24 22:22 AST 19 U/L (0-40) 09/18/24 22:22 ALT 19 U/L (0-41) 09/18/24 22:22 Alkaline Phosphatase 66 U/L (40-130) 09/18/24 22:22 Troponin T Baseline 13 ng/L (0-15) 09/18/24 22:22 NT-Pro-B Natriuret Pep 130 pg/mL (0-450) 09/18/24 22:22 Total Protein 6.7 g/dL (6.6-8.7) 09/18/24 22:22 Albumin 4.2 g/dL (3.5-5.2) 09/18/24 22:22 Globulin 2.5 g/dL (1.3-4.6) 09/18/24 22:22 TSH 3.17 uIU/mL (0.27-4.20) 09/18/24 22:22 Urine Color Yellow (Yellow) 09/18/24 21: Urine Appearance Clear (CLEAR) 09/18/24 21: Urine pH 7.0 (5-7) 09/18/24 21: Ur Specific [place] 1.005 (1.005-1.030) 09/18/24 21: Urine Protein Negative (Negative) 09/18/24 21: Urine Glucose (UA) Negative (Normal) 09/18/24 21: Urine Ketones Negative (Negative) 09/18/24 21: Urine Blood Trace (Negative) A 09/18/24 21:32 Urine Nitrate Negative (Negative) 09/18/24 21: Urine Bilirubin Negative (Negative) 09/18/24 21: Urine Urobilinogen 0.2 mg/dL (Negative) 09/18/24 21: Ur Leukocyte Esterase Negative (Negative) 09/18/24 21:32 Urine RBC 0-2 /hpf (0-2) 09/18/24 21:32 Urine WBC 0-5 /hpf (0-5) 09/18/24 21:32 Ur Squamous Epith Cells 0-5 /hpf (0-5) 09/18/24 21:32 Amorphous Sediment Not Reportable 09/18/24 21:32 Urine Bacteria None seen /hpf (NONE) 09/18/24 21:32 Hyaline Casts 0-4 /lpf H 09/18/24 21:32 Influenza A (PCR) Negative (Negative) 09/18/24 22:27 Influenza Type B (PCR) Negative (Negative) 09/18/24 22:27 RSV (PCR) Negative (Negative) 09/18/24 22:27 SARS-CoV-2 (PCR) Negative (Negative) 09/18/24 22:27 All radiology interpretation(s) finalized by discharge Discharge Plan Discharge Patient Disposition: Home Clinical Impression: Supraventricular tachycardia, Atrial fibrillation Condition: Stable Prescriptions: No Action fexofenadine [Allergy Relief (fexofenadine)] 180 mg tablet 180 mg PO .PRN Ocuvite Adult 50 Plus 250-5-1 mg capsule 1 cap PO DAILY Eliquis 5 mg tablet 5 mg PO BID psyllium Packet 1 packet PO DAILY flecainide 150 mg tablet 150 mg PO Q12H fluticasone propionate 50 mcg/actuation spray,suspension 1 spray INTRANASAL BID PRN (Reason: Allergy Symptoms) fluocinonide 0.05 % ointment 1 applic topical BID atorvastatin 20 mg tablet PO diltiazem HCl 180 mg capsule,extended release 24hr See Rx Instructions .ROUTE .COMPLEX Qty: 90 3RF Dose Instruction: TAKE 1 CAPSULE BY MOUTH EVERY DAY Rx Instructions: TAKE 1 CAPSULE BY MOUTH EVERY DAY dutasteride-tamsulosin 0.5-0.4 mg capsule, ER multiphase 24 hr 1 cap PO DAILY acetaminophen 325 mg tablet 325 - 650 mg PO DAILY PRN (Reason: Pain) Discharge Orders: Discharge ED (Routine); Ordered 09/18/24 Ordered By: Ash De La Vega Referrals: John Kowalski MD [Primary Care Provider] - Discharge Diet: Usual diet Discharge Activity: Resume usual activity Patient Instructions: A-fib (Atrial Fibrillation) (ED), Opioid Safety, Pain Management Activity Restrictions/Additional Instructions: Continue home medications as previously directed. Follow-up with your neurology epilepsy physician for recheck next week. Return for any new or worsening symptoms or any other concerns. Print Language: Sinhala Coding Level of Care Code ED Rotary Dryer Operator for Jenna Silverio
[2024-09-18 21:30] LABS: Basophils % 0.3 %; Eosinophils # 0.1 10^3/uL (0.0-0.8); Hematocrit 48.4 % (37-53); Lymphocytes # 2.2 10^3/uL (0.8-4.8); Lymphocytes % 31.7 %; Mean Corpuscular HGB Conc 33.1 g/dL (30-55); Mean Corpuscular Hemoglobin 30.8 pg (27-33); Mean Corpuscular Volume 93.3 fl (82-101); Mean Platelet Volume 9.1 fL (7.4-10.4); Monocytes # 0.7 10^3/uL (0.2-0.9); Monocytes % 9.5 %; Neutrophils # 3.93 10^3/uL (1.8-7.7); Neutrophils % 56.2 %; Nucleated Red Blood Cells % 0 %; Platelet Count 237 10^3/cmm (157-399); Red Blood Count 5.19 10^6/uL (3.85-5.65); Red Cell Distribution Width 13.3 % (12.1-15.1); White Blood Count 6.98 10^3/uL (3.29-11.43)
[2024-09-18 21:36] LABS: Bilirubin Urine Negative (Negative); Blood Urine Trace (Negative); Glucose Urine UA Negative (Normal); Ketones Urine Negative (Negative); Leukocyte Esterase Urine Negative (Negative); Nitrate Urine Negative (Negative); Protein Urine Negative (Negative); Specific Gravity, Urine 1.005 (1.005-1.030); Urine Appearance Clear (CLEAR); Urine Color Yellow (Yellow); Urobilinogen Urine 0.2 mg/dL (Negative)
[2024-09-18] MEDS: dilTIAZem 5 mg/mL SDV 5 mL 20 MG IVP (21:39)
[2024-09-18 21:40] LABS: Bacteria Urine None Seen /hpf; Hyaline Casts Urine 0-4 /lpf; RBC Urine 0-2 /hpf (0-2); Squamous Epithelial Cell Urine 0-5 /hpf (0-5); WBC Urine 0-5 /hpf (0-5)
[2024-09-18 21:51] VITALS: BP 122/74; PULSE 84; RESP 18; O2SAT 91
[2024-09-18 22:28] VITALS: BP 118/78; PULSE 81; RESP 16; O2SAT 91
--- NOTE | 2024-09-18 23:04 | ECG_ITS ---
[facility]: [facility]24[facility]18 Pat Name: Fadi Jordan Department: Room: Gender: Male Juvenile Officer: : 1945 Requested By: Pat Preciado Order Number: [id number] Alcala MD: Bar De La Cruz M.D. Measurements Intervals [place] Rate: 72 P: 62 VA: 188 QRS: 5 QRSD: 105 T: 36 QT: 387 QTc: 426 Interpretive Statements SINUS RHYTHM Compared to ECG 09/18/2024 20:59:04 Intraventricular conduction delay no longer present T-wave abnormality no longer present Electronically Signed On 09-19-2024 10:40:43 CDT by Bar De La Cruz M.D. [email or web address]
[2024-09-18 23:05] LABS: Troponin(5th) Baseline 13 ng/L (0-15)
[2024-09-18 23:15] LABS: Alanine Aminotransferase 19 U/L (0-41); Albumin Level 4.2 g/dL (3.5-5.2); Alkaline Phosphatase 66 U/L (40-130); Anion Gap 13.3 (5-19); Aspartate Amino Transferase 19 U/L (0-40); Blood Urea Nitrogen 20 mg/dL (8-23); Calcium 9.3 mg/dL (8.5-10.5); Carbon Dioxide 25 mmol/L (22-29); Chloride 107 mmol/L (98-107); Creatinine Clr Calc Pharmacy 81.2045; Globulin 2.5 g/dL (1.3-4.6); Glucose 105 mg/dL (65-115); NT Pro B Type Natriuretic Pept 130 pg/mL (0-450); Osmolality Calculated 295 mOsm/kg (285-295); Potassium 4.3 mmol/L (3.5-5.1); Sodium 141 mmol/L (136-145); Thyroid Stimulating Hormone 3.17 uIU/mL (0.27-4.20); Total Bilirubin 0.2 mg/dL (0.15-1.2); Total Protein 6.7 g/dL (6.6-8.7)
[2024-09-18 23:20] LABS: Influenza A NEGATIVE (Negative); Influenza B NEGATIVE (Negative); Respiratory Syncytial Virus Ce NEGATIVE (Negative); SARS-CoV-2 PCR NEGATIVE (Negative)
[2024-09-18 23:50] VITALS: BP 110/66; PULSE 68; RESP 16; O2SAT 94
== END 2024-09-18 23:51 | disposition home or self-care (01) ==
PROVIDERS: Emergency Medicine; Emergency Provider Student in an Organized Health Care Education/Training Program; PCP Family Medicine
DX: I47.10 Supraventricular tachycardia, unspecified (principal); I48.91 Unspecified atrial fibrillation; Z11.52 Encounter for screening for COVID-19; Z79.01 Long term (current) use of anticoagulants; I10 Essential (primary) hypertension
CPT/HCPCS: 36415; 71045; 80053; 81001; 83735; 83880; 84443; 84484; 85025; 87637; 93005; 96374; 99285; J3490

== ENCOUNTER 2024-10-03 10:42 | Outpatient (CLI) | payer MEDICARE, OTHER, SELFPAY ==
--- NOTE | 2024-10-03 11:00 | USCV_ITS ---
Fadi Jordan Age: 79 Gender: M : 1945 Exam Date: 10/03/2024 10:56 Ordering Phys: Bar De La Cruz MD ([email or web address]) Technologist: ALF Exam Location: [facility] [place] Indication: cp sob BP: / HR: 73 Rhythm: Sinus Technical Quality: Adequate MEASUREMENTS (Male / Female) Normal Values 2D ECHO LV Diastolic Diameter PLAX 4.5 cm 4.2 - 5.9 / 3.9 - 5.3 cm IVS Diastolic Thickness 1.4 cm 0.6 - 1.0 / 0.6 - 0.9 cm IVS Systolic Thickness 1.7 cm LVPW Diastolic Thickness 1.4 cm 0.6 - 1.0 / 0.6 - 0.9 cm LVPW Systolic Thickness 2.2 cm LVOT Diameter 2.1 cm LV Ejection Fraction 2D Teich 62.2 % LV Ejection Fraction MOD 4C 64.4 % LV Ejection Fraction MOD 2C 70.7 % LV Ejection Fraction 2C AL 71.0 % LA Diameter 3.8 cm RA Systolic Volume 4C AL 63.2 ml RA Systolic Volume 4C MOD 64.4 ml Aorta at Sinotubular Diameter 3.7 cm M-MODE LA Ao Ratio MM 1.3 AV Cusp Separation MM 2.3 cm DOPPLER AV Peak Velocity 133.7 cm/s LVOT Peak Velocity 105.0 cm/s AV Area Cont Eq vti 3.2 cm squared AV Area Cont Eq pk 2.7 cm squared MV Peak Velocity 88.0 cm/s MV Area PHT 2.9 cm squared Mitral E to A Ratio 0.9 TV Peak Velocity 187.0 cm/s TR Peak Velocity 212.0 cm/s TR Peak Gradient 18.0 mmHg TV Peak E Velocity 75.0 cm/s PV Peak Velocity 101.0 cm/s FINDINGS Left Ventricle Normal left ventricular size and systolic function, EF 64%.. No regional wall motion abnormalities. Mild left ventricular hypertrophy. Grade I/IV diastolic dysfunction (abnormal relaxation filling pattern), normal to mildly elevated filling pressures. Right Ventricle The right ventricle is normal in size and function. Right Atrium The right atrium is normal in size. Left Atrium The left atrium is normal in size. Mitral Valve No gross abnormalities noted Aortic Valve Thickened aortic valve. Tricuspid Valve Trace tricuspid valve regurgitation. Pulmonic Valve Structurally normal pulmonic valve. Pericardium Normal pericardium without effusion. Aorta Normal ascending aorta dimension. IVC Normal inferior vena cava. CONCLUSIONS Normal left ventricular size and systolic function, EF 64%.. No regional wall motion abnormalities. Mild left ventricular hypertrophy. Grade I/IV diastolic dysfunction (abnormal relaxation filling pattern), normal to mildly elevated filling pressures. Thickened aortic valve. Trace tricuspid valve regurgitation. There is no pericardial effusion. There are no intracardiac masses. Compared to the study from 03/31/2019, there may not be a significant change Dr Bar De La Cruz MD FAC (Electronically Signed) Final Date: 06 Oct 2024 10:11 S
== END 2024-10-03 10:43 | disposition home or self-care (01) ==
PROVIDERS: PCP Family Medicine; Visit Provider Internal Medicine Cardiovascular Disease
DX: R94.39 Abnormal result of other cardiovascular function study (principal); I51.7 Cardiomegaly; R93.1 Abnormal findings on diagnostic imaging of heart and coronary circulation; I35.8 Other nonrheumatic aortic valve disorders
CPT/HCPCS: 93306

== ENCOUNTER → 2024-10-30 14:08 | Outpatient (BNVA) | payer MEDICARE, OTHER, SELFPAY | PROVIDERS: PCP Family Medicine; Visit Provider Nurse Practitioner Family | DX: L82.1 Other seborrheic keratosis (principal); D22.39 Melanocytic nevi of other parts of face; I78.8 Other diseases of capillaries; L57.8 Other skin changes due to chronic exposure to nonionizing radiation; L81.4 Other melanin hyperpigmentation; Z86.006 Personal history of melanoma in-situ; Z08 Encounter for follow-up examination after completed treatment for malignant neoplasm; Z85.828 Personal history of other malignant neoplasm of skin; L82.0 Inflamed seborrheic keratosis; L53.8 Other specified erythematous conditions; R20.8 Other disturbances of skin sensation; L29.89 Other pruritus; L57.0 Actinic keratosis; L91.8 Other hypertrophic disorders of the skin | CPT/HCPCS: 11200; 17000; 17110; 99213 ==